=== PATIENT | male | born 2000 | race Caucasian/White ===

== ENCOUNTER 2023-12-28 05:35 | Emergency (ER) | payer OTHER, SELFPAY ==
[2023-12-28 05:36] VITALS: BP 162/98; BMI 23.5
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
[2023-12-28] MEDS: TORADOL 30 MG IV (06:40)
[2023-12-28 06:41] LABS: % Basophils 0.2 % (0-2); % Eosinophils 0.9 % (0-6); % Immature Granulocytes 0.4 % (0-0.5); % Monocytes 7.3 % (1.7-9.3); % Neutrophils 82.2 % (42.2-75.2); Absolute Eosinophils 0.1 10^3/uL (0-0.7); Absolute Immature Granulocytes 0.1 10^3/uL (0-0.05); Absolute Lymphocytes 1.2 10^3/uL (1.2-3.4); Absolute Neutrophils 11.3 10^3/uL (1.4-6.5); Hemoglobin 14.9 g/dL (13.0-18.0); Mean Corp Hgb Conc. 33.9 g/dL (33.0-37.0); Mean Corpuscular Hgb 28.5 pg (27.0-31.0); Mean Corpuscular Volume 84.1 fL (80.0-94.0); Mean Platelet Volume 10.8 fL (7.4-10.4); Nucleated Red Blood Cells % 0 % (-); Platelet Count 225 10^3/uL (130-400); Red Blood Cell Count 5.23 10^6/uL (4.70-6.10); Red Cell Dist. Width 11.7 % (11.5-14.5); White Blood Cell Count 13.8 10^3/uL (4.8-10.8)
[2023-12-28] MEDS: DECADRON 10 MG IV (06:41)
[2023-12-28] MEDS: ZOSYN 50 IV (06:43)
[2023-12-28 06:57] LABS: Blood Urea Nitrogen 18 mg/dl (9-20); Calcium 10.1 mg/dl (8.4-10.2); Carbon Dioxide 22 mmol/L (22-30); Chloride 105 mmol/L (98-107); Estimated Creatinine Clearance > 125 ml/min; Glucose 118 mg/dl (70-99); Potassium 3.9 mmol/L (3.5-5.1); Sodium 143 mmol/L (135-145); eGFR > 60.00
[2023-12-28 07:19] VITALS: BP 162/66
[2023-12-28 07:44] VITALS: BP 134/71
[2023-12-28 08:00] VITALS: BP 131/60
== END 2023-12-28 09:05 | disposition home or self-care (01) ==
LOC: EMR 05:35
PROVIDERS: EMERGENCY PHYSICIAN Student in an Organized Health Care Education/Training Program; FAMILY PHYSICIAN Nurse Practitioner Family
DX: J36 Peritonsillar abscess (principal)
CPT/HCPCS: 99284; 70491; 80048; 85025; Q9967

== ENCOUNTER 2024-10-18 06:27 | Observation (INO) | payer OTHER, SELFPAY ==
[2024-10-18] VITALS (13 sets, daily range): BP systolic 116–156; BP diastolic 40–98; BMI 24.0; BMI 23.2
[2024-10-18] MEDS: TORADOL 15 MG IV ×3 (01:03→20:20)
[2024-10-18 01:10] LABS: % Basophils 0.3 % (0-2); % Eosinophils 0.1 % (0-6); % Immature Granulocytes 0.3 % (0-0.5); % Lymphocytes 4.4 % (20.5-51.1); % Monocytes 4.3 % (1.7-9.3); % Neutrophils 90.6 % (42.2-75.2); Absolute Basophils 0.1 10^3/uL (0-0.2); Absolute Immature Granulocytes 0.1 10^3/uL (0-0.05); Absolute Lymphocytes 0.7 10^3/uL (1.2-3.4); Absolute Monocytes 0.7 10^3/uL (0.1-0.6); Absolute Neutrophils 15.1 10^3/uL (1.4-6.5); Hematocrit 46.6 % (39.0-52.0); Hemoglobin 16.5 g/dL (13.0-18.0); Mean Corp Hgb Conc. 35.4 g/dL (33.0-37.0); Mean Corpuscular Hgb 29.4 pg (27.0-31.0); Mean Corpuscular Volume 82.9 fL (80.0-94.0); Mean Platelet Volume 11.5 fL (7.4-10.4); Nucleated Red Blood Cells % 0 % (-); Platelet Count 219 10^3/uL (130-400); Red Blood Cell Count 5.62 10^6/uL (4.70-6.10); Red Cell Dist. Width 11.7 % (11.5-14.5); White Blood Cell Count 16.7 10^3/uL (4.8-10.8)
[2024-10-18 01:24] LABS: ALT (SGPT) 20 U/L (0-50); AST (SGOT) 25 U/L (17-59); Albumin 5.6 g/dl (3.5-5.0); Alkaline Phosphatase 89 U/L (38-126); Blood Urea Nitrogen 11 mg/dl (9-20); Calcium 10.5 mg/dl (8.4-10.2); Carbon Dioxide 20 mmol/L (22-30); Chloride 107 mmol/L (98-107); Estimated Creatinine Clearance > 125 ml/min; Glucose 145 mg/dl (70-99); Potassium 4.1 mmol/L (3.5-5.1); Sodium 144 mmol/L (135-145); Total Bilirubin 0.9 mg/dl (0.2-1.3); Total Protein 8.5 g/dl (6.3-8.2); eGFR > 60.00
--- NOTE | 2024-10-18 01:29 | ED.GENMED ---
History of Present Illness
General
Chief Complaint: Breathing Problem
Source: patient
Exam Limitations: none
Time Seen by Provider: 10/18/24 00:22
Nursing documentation reviewed up to this point in time: agreed with
History of Present Illness
History of Present Illness:
23-year-old male presents to the emergency room for evaluation of chest/back pain, neck pain, change in voice. Patient reports that he started with URI symptoms 2 days ago that resolved after about 24 hours�he reports that he had mild sore throat
and congestion. He says that yesterday he started with a cough and began to experience some shortness of breath, chest pain and back pain. He says that today started with some pain in the neck. He noticed 'I have crepitus in my neck' (patient
used to be an EMT). He says that his voice is more hoarse than usual. Came to the emergency room for evaluation. He has not had a fever. He denies any swelling in the legs. He denies any known chronic medical issues. He was seen in urgent
care, says that he had negative COVID test.
Past History
Past History
ED Past Medical History: None
ED Past Surgical History: Other (Hernia repair)
Social History
Tobacco: Non-smoker
Alcohol: None
Drug: None
Personal: Single
Living: with family
Review of Systems
Review of Systems
All Other Systems: ROS reviewed and negative except as documented in HPI and ROS
Constitutional: Denies fever or chills
EENT: Reports sore throat
Respiratory: Reports cough and trouble breathing
Cardiac: Reports chest pain
ABD/GI: Denies abdominal pain or vomiting
: Denies flank pain
Musculoskeletal: Reports neck pain and back pain
Neurological: Denies dizzy or headache
Phy Exam
Physical Exam
Physical Exam:
General: Awake, alert, oriented x3; no acute distress
Head: Normocephalic, atraumatic
Eyes: Conjunctiva normal, pupils equal round and reactive to light bilaterally
Throat: Airway intact, handling secretions; he does have some slight tonsillar enlargement and erythema but no exudate and no asymmetry, midline uvula
Neck: Trachea midline, supple without meningismus patient has crepitus of the entire anterior neck up towards the mandibular line
Lungs: Clear to auscultation bilaterally, no wheezing, rales, rhonchi
Heart: Regular rate and rhythm, no murmurs, gallops, or rubs; crepitus upper chest wall into the neck as above
Abd: Soft, non distended, nontender
Neuro: No gross deficits
Skin: no rash
Extremities: Warm and well-perfused
Scores
Heart Failure Risk
Heart Failure Risk Score: Not Applicable
Heart Score for Chest Pain Patients
STEMI patient?: Not applicable
Withdrawal Assessment of Alcohol
Withdrawal Assessment Completed?: Not applicable
Course
Orders/Labs/Results
Orders:
Orders
10/18/24 00:29
CR Chest - 2 Views Urgent
Comment:
Reason For Exam: sob, chest pain, crepitus
10/18/24 00:40
COVID-19 Antigen Urgent
Source: Nasal Swab
Complete Blood Count/With Diff Urgent
Comprehensive Metabolic Panel Urgent
Influenza A+B Rapid Molecular Urgent
SUMEET Source: Nasal Swab
Specimen Description:
RSV [Respiratory Syncytial Virus] Urgent
SUMEET Source: Nasal Swab
Specimen Description:
Date Specimen was Collected: 10/18/24
Time Specimen was Collected: 00:26
10/18/24 00:48
CT Chest With Iv Contrast Urgent
Comment:
Reason For Exam: neck pain, chest pain, subq air
CT Neck With Iv Contrast Urgent
Comment:
Reason For Exam: neck pain, subq air
10/18/24 00:49
Ketorolac [Toradol] 15 mg IV NOW STA
10/18/24 03:18
Oxycodone [Roxicodone] 5 mg PO NOW STA
Abnormal Lab Results
10/18/24
00:40
WBC 16.7 H 10^3/uL
(4.8-10.8)
MPV 11.5 H fL
(7.4-10.4)
Abs Immat Gran (auto) 0.1 H 10^3/uL
(0-0.05)
Absolute Neuts (auto) 15.1 H 10^3/uL
(1.4-6.5)
Absolute Lymphs (auto) 0.7 L 10^3/uL
(1.2-3.4)
Absolute Monos (auto) 0.7 H 10^3/uL
(0.1-0.6)
Neutrophils % 90.6 H %
(42.2-75.2)
Lymphocytes % 4.4 L %
(20.5-51.1)
Carbon Dioxide 20 L mmol/L
(22-30)
Glucose 145 H mg/dl
(70-99)
Calcium 10.5 H mg/dl
(8.4-10.2)
Total Protein 8.5 H g/dl
(6.3-8.2)
Albumin 5.6 H g/dl
(3.5-5.0)
10/18/24 00:40
10/18/24 00:40
Vital Signs
Initial and Last Documented VS:
Initial Vital Signs
Temp Pulse Resp BP Pulse Ox
36.4 C 98 22 155/98 98
10/18/24 00:14 10/18/24 00:14 10/18/24 00:14 10/18/24 00:14 10/18/24 00:14
Last Documented Vital Signs
Temp Pulse Resp BP Pulse Ox
36.4 C 89 10 156/62 96
10/18/24 00:14 10/18/24 02:58 10/18/24 02:45 10/18/24 02:16 10/18/24 02:45
MDM/Problems Addressed
Differential Diagnosis Includes:
Pneumothorax, esophageal tear, retropharyngeal/peritonsillar abscess, pneumomediastinum
MDM/Problems Addressed:
23-year-old male presents for evaluation of chest pain, back pain, shortness of breath in the setting of URI symptoms�sore throat, cough, congestion. Hypertensive otherwise normal vitals. Physical exam as above notable for crepitus of the chest
wall and neck. Bilateral breath sounds are present. Stat chest x-ray reviewed by me shows no pneumothorax but significant subcu air. Will send labs including a CBC and a CMP. Will check CT of the chest and neck. Toradol for pain. Reassess
after the above.
Labs significant for leukocytosis to 17. CT pending.
CT called back by [facility] radiology: Patient has extensive pneumomediastinum with gas tracking into the neck soft tissues bilateral axilla and chest wall. Small amount of gas tracking along the right bronchovascular bundle�overall suggestive of
barotrauma/alveolar rupture. Nothing to suggest esophageal injury. No pneumothorax. Given that he is tachycardic and has leukocytosis will cover with a dose of antibiotics. Will discuss with CT surgery.
Discussed case with cardiothoracic surgery�recommended admission for observation. They will consult on patient. Case discussed with hospitalist for admission.
*Radiology
Radiology exam reviewed: preliminary read by ED provider and radiology read reviewed
*Pulse Oximetry
Patient hypoxic: no
*Critical Care Note
Total Time (30-74mins, 75-104mins- exclusive of procedures): Not Applicable
Data Reviewed
Review of Other/Old Records Reveals: Labs and Records
Source: patient and records
Patient Management
Discussion with other providers: Hospitalist (Discussed with hospitalist) and Group Burner Machine (Discussed with cardiothoracic surgery)
Escalation/DeEscalation of care consider admission/obs:
Admission indicated
ED Attending Note
-
Portions of this chart may have been created with voice recognition software.� Occasional wrong word or��sound alike� substitutions may have occurred due to the inherent limitations of voice recognition software.
Discharge Plan
Departure
Patient Disposition: Admit
Date of Disposition: 10/18/24
Time of Disposition: 03:34
Admit to doctor: Agustin
Presentation/result/management discussed w/ accepting MD/DO: Hospitalist
Discharge Problem:
Pneumomediastinum
Prescriptions:
No Action
lisinopril 10 mg Tablet
10 mg PO DAILY
Referrals:
Alexy Overton CRNP [Family Provider] -
Interventions
Interventions:
*Risk Screen - Suicide Last Done: 10/18/24 00:14
*General Assessment Last Done: 10/18/24 00:32
*Neglect/Abuse Screening Last Done: 10/18/24 00:14
*ED- Fall Risk Assessment Last Done: 10/18/24 00:32
*ED COVID-19 Vaccine History Last Done: 10/18/24 00:32
ED- Cardiac Assessment Last Done: 10/18/24 01:23
ED- Pulmonary Assessment Last Done: 10/18/24 01:23
Discharge Date and Time
Print Language: GUAMANIAN
[2024-10-18 01:34] LABS: COVID-19 Antigen Negative (Negative)
[2024-10-18] MEDS: ROXICODONE 5 MG PO (03:33)
[2024-10-18] MEDS: ZOSYN 50 IV (04:07)
--- NOTE | 2024-10-18 06:22 | HPS.HSE ---
Family Physician
-
Family Physician: JOSE Palma
Chief Complaint
-
SOB
History of Present Illness
Patient is a 23y M with PMH significant for LVH who presents to ED complaining of SOB. Patient states that he developed a sore throat on Friday. He then developed chest and sinus congestion with cough on Friday. He notes that he was coughing
fairly vigorously. Friday evening into Friday AM he felt somewhat SOB. Last PM this was more severe and he was unable to get comfortable / get to sleep. Patient noted discomfort in his neck / throat area, his upper back and his lower chest. He
appreciated 'crackling' / crepitus when feeling around his throat / neck.
Patient presented to the ED for further evaluation and treatment.
Patient denies any cigarette smoking, crack cocaine use, N/V/D or other GI symptoms, recent injury / surgery or trauma.
Medical History
Past Medical History
Past Medical History: Reports Other
Additional Past Medical History:
Left Ventricular Hypertrophy
Past Surgical History: Reports None
Social History
Tobacco: Non-smoker
Alcohol: Occasional
Drug: Other (Occasional THC vape)
Family History
Family History: Other (MGF: Heart Disease Father: HTN)
Allergies / Home Medications
Allergies reflects when Allergies were last updated in [facility].
Home Medications with original date entered in [facility]
Allergy/Medication List:
Allergies
Allergy/AdvReac Type Severity Reaction Status Date / Time
No Known Allergies Allergy Verified 10/18/24 00:16
Home Medications
lisinopril 10 mg tablet 5 mg PO DAILY 10/18/24
Review of Systems
-
History Source: Patient
A 12 point ROS was completed and negative except as noted: Yes
Constitutional: Denies Fever or Chills
EENT: Reports Sore Throat
Respiratory: Reports Cough and Trouble Breathing; Denies Hemoptysis
Cardiac: Reports Chest Pain; Denies Diaphoresis, Palpitations or Syncope
Abdomen/GI: Denies Abdominal Pain, Nausea, Vomiting or Diarrhea
: Denies Dysuria, Frequency or Flank Pain
Musculoskeletal: Denies Joint Pain or Edema
Neurological: Denies Dizzy or Headache
Psych: Denies Depression or Anxiety
Physical Exam
Vital Signs
Vital Signs
Temp Pulse Resp BP Pulse Ox
97.6 F 97 10 132/59 96
10/18/24 00:14 10/18/24 05:00 10/18/24 05:00 10/18/24 05:00 10/18/24 05:00
Physical Exam
General: Other (23y M in no acute distress.)
HEENT: Other (Nasal voice. Crepitus along neck / upper chest / axillae.)
Respiratory: Clear; No Wheezes, Rales or Rhonchi
Cardiac: S1/S2 and Regular Rhythm; No Murmur
GI: Soft, Non Tender, Non Distended and Normal Bowel Sounds
Musculoskeletal: No Clubbing, No Cyanosis and No Edema
Neuro: AO x 3
Laboratory Results
-
10/18/24 00:40
10/18/24 00:40
Laboratory Results
Total Bilirubin 0.9 mg/dl (0.2-1.3) 10/18/24 00:40
AST 25 U/L (17-59) 10/18/24 00:40
ALT 20 U/L (0-50) 10/18/24 00:40
Alkaline Phosphatase 89 U/L (38-126) 10/18/24 00:40
Impression/Plan
-
A/P: Patient is a 23y M with PMH significant for LVH who presents to ED complaining of SOB.
Pneumomediastinum
- Observe overnight for further evaluation.
- Supportive care / pain control.
- Follow for worsening SOB, hypotension, chest pain, etc.
- CT Surgery consulted in ED.
- Adequate cough suppression. Avoid deep inspiration, strenuous activity, etc.
- Follow for clinical improvement.
Bronchitis
- Likely viral illness. Afebrile / non-toxic.
- Supportive care. Cough suppressant as noted above.
- Follow for any new / worsening symptoms.
- Observe off of abx for now.
LVH
- Check EKG.
- Patient recently started on lisinopril for LVH seen on EKG.
- Notes that he had low BP after initiation and dose decreased to 5mg.
- Would hold for now.
DVT Prophylaxis: SCDs
Code Status: Full
--- NOTE | 2024-10-18 08:32 | CONSULT.CT ---
Addendum entered and electronically signed by Tobi Bullock MD 10/18/24 17:06:
I saw and examined the patient.
The PA's note was reviewed and I agree with the note.
Comment:
Like secondary to barotrauma from coughing. Nothing to do from CT Surgery standpoint. We will sign off. Please call us back with questions or concerns.
Original Note:
Consultation
-
Date/Time Consultation Requested: 10/18/24
Date/Time Consultation Performed: 10/18/24 08:32
Requesting Provider: Dr. Randoplh Elizabeth MD.
Performing Provider: Emperatriz De La Cruz PA-C
Reason for Consultation: Pneumomediastinum
Patient History
Physicians
Family Physician: JOSE Palma
Outpatient Chute Puller: Dr. Terra Salgado MD.
Inpatient Chute Puller: None
History of Present Illness
Patient is extremely pleasant 23-year-old male with PMH significant for hypertension, started on lisinopril, seen by Dr. Salgado roughly 3 weeks ago, nightly THC via vape.
Patient was doing well up until Friday night when he began to experience a sore throat. This resolved and shortly after on Friday he started with congestion. By Friday night into Friday he was coughing and experiencing shortness of breath.
Patient sought medical attention at an urgent care on Friday where they diagnosed him with bronchitis and gave him steroids and albuterol inhaler. No imaging was done and he was discharged home. His condition continued to worsen and he then
presented to [facility]'s emergency department on Friday around 1:30 AM.
Patient underwent routine labs and chest x-ray which revealed leukocytosis with a white count of 16.7. Chest x-ray revealed pneumomediastinum extending into the neck with no visible pneumothorax. Subsequent CT of the chest and neck were performed
and confirmed the above findings. CT surgery physician on-call Dr. Casiano was notified and recommended admitting the patient for observation. CT surgery was consulted.
Past Medical History
Past Medical History: HTN and Other (Nightly THC via vape)
Past Surgical History
Past Surgical History: None
Dental History
Noncontributory
Family History
Mother: Still Living (54, no comorbidities reported)
Father: Still Living (57, with hypertension and hyperlipidemia)
Social History
Alcohol: None
Drug: Marijuana (Before bed, via vape pen)
Tobacco: Non-Smoker
Personal: Single
Living: Alone
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
Allergies
Allergy/AdvReac Type Severity Reaction Status Date / Time
No Known Allergies Allergy Verified 10/18/24 00:16
Home Medications
�Medication �Instructions �Recorded �Confirmed �Type
albuterol sulfate 90 mcg/actuation 2 puff inhalation R Q6HPRN PRN sob 10/18/24 10/18/24 History
aerosol inhaler
brompheniramine-phenylpropanol ER 1 tab PO DAILYPRN PRN congestion 10/18/24 10/18/24 History
12 mg-75 mg tablet,ext.release 12
hr
guaifenesin 100 mg/5 mL oral liquid 200 mg PO BIDPRN PRN cough 10/18/24 10/18/24 History
ibuprofen 200 mg tablet (Advil) 400 mg PO Q6HPRN PRN mild pain 10/18/24 10/18/24 History
lisinopril 5 mg tablet 5 mg PO DAILY 10/18/24 10/18/24 History
therapeutic multivitamin 1 tab PO DAILY 10/18/24 10/18/24 History
Review of Systems
-
History Source: Patient
General: Denies Fever, Weight Gain, Weight Loss, Fatigue or Chills
HEENT: Reports Other (Crepitus in neck and shoulders as well, voice change); Denies Visual Changes, Dysphagia or Hoarseness
Respiratory: Reports SOB, HANSEN and Cough; Denies Asthma or PND
Cardiac: Reports Chest Pain; Denies CAD, Palpitations, Nausea, Vomiting, Diaphoresis or Edema
Abdomen/GI: Denies Abdominal Pain, Reflux, Indigestion, Nausea, Vomiting, Diarrhea or BRBPR
: Denies Dysuria, Frequency, Incontinence, Urgency or Hematuria
Musculoskeletal: Denies Myalgias, Arthralgias, Joint Pain or Edema
Skin: Denies Itching or Rash
Neurological: Denies CVA, TIA, Headaches, Weakness, Numbness or Seizures
Vascular: Denies Claudication or PVD
Physical Exam
Vital Signs
Temp 97.6 F 10/18/24 00:14
Temp route: Oral 10/18/24 00:14
Pulse 75 10/18/24 08:00
Resp Rate 18 10/18/24 08:00
Blood pressure 145/68 10/18/24 08:00
Blood pressure extremity used: Right upper arm 10/18/24 08:00
Position: Lying 10/18/24 08:00
MAP (cuff-Raphael Monitor) 83 10/18/24 08:00
MAP 83 10/18/24 08:00
SaO2 95 10/18/24 08:00
Oxygen Mode of Delivery Room air 10/18/24 08:00
Acceptable pain level during hospitalization? 0 10/18/24 00:14
Can the patient verbally communicate their pain? Yes 10/18/24 04:33
Pain scale ratin 10/18/24 04:33
Actual Weight 167 lb 8.821 oz 10/18/24 00:32
Body Mass Index (BMI) 24.0 10/18/24 00:32
Labs
10/18/24 00:40
10/18/24 00:40
Diagnostic Studies
CXR 10/18/2024:
Pneumomediastinum, which extends into the neck and chest wall. See above. No pneumothorax.
CT chest 10/18/2024:
Pneumomediastinum and subcutaneous emphysema, most suggestive of barotrauma. No secondary findings to indicate an esophageal perforation, such as esophageal wall thickening. No pleural effusion or pneumothorax.
CT neck 10/18/2024:
Report pending
Exam
General: Well Developed, Well Nourished and No Apparent Distress
HEENT: Normocephalic, Anicteric, Moist Mucous Membranes, Atraumatic, PERRLA and Other (Voice change)
Neck: Trachea Midline and Other (Crepitus extending into the neck, and shoulders)
Respiratory: Wheezes (Mild); Negative Crackles, Rhonchi or Accessory Muscle Use
Cardiac: S1/S2, Regular Rhythm and Other (Crepitus in the upper chest region); Negative Murmur, Rub or Gallop
GI: Soft, Non Tender, Non Distended and Normal Bowel Sounds
Rectal: Deferred by Provider
Skin: Warm and Dry; Negative Rash
Neuro: AO x 3, No Motor Deficits and CN X-XII Intact
Extremities: Negative Upper Level Edema, Lower Level Edema, Upper Level Cyanosis, Lower Level Cyanosis, Upper Level Clubbing or Lower Level Clubbing
Psych: Calm
Assessment / Plan
-
Assessment:
23-year-old male with PMA significant for:
HTN
Nightly THC use via vape
Now with newly diagnosed:
Pneumomediastinum with associated crepitus/subcutaneous emphysema and voice change.
Plan:
Admission to hospitalist/medicine service for observation.
Trend white blood cell count
Recommend checking esophagram with Gastrografin/barium to rule out esophageal perforation
Counseled patient on vaping cessation
If esophagram is negative for leak and white blood cell counts improve or normalize, okay for discharge to home.
--- NOTE | 2024-10-18 12:26 | W.PN.UPDATE ---
Update Note
Progress Note Update
Seen and examined independent of overnight physician. Nonbillable note. Patient states mild shortness of breath. No coughing currently. Denies any vomiting. States of hoarseness of voice. Underwent CAT scan of the chest and neck on admission
which showed barotrauma/alveolar rupture, pneumomediastinum and subcutaneous emphysema. No secondary finding to indicate esophageal perforation such as esophageal wall thickening. No pleural effusion or pneumothorax.
General: Other (23y M in no acute distress.), hoarseness of voice noted
HEENT: Other (Nasal voice. Crepitus along neck / upper chest / axillae.)
Respiratory: Clear; No Wheezes, Rales or Rhonchi
Cardiac: S1/S2 and Regular Rhythm; No Murmur
GI: Soft, Non Tender, Non Distended and Normal Bowel Sounds
Musculoskeletal: No Clubbing, No Cyanosis and No Edema
Neuro: AO x 3
A/P: Patient is a 23y M with PMH significant for LVH who presents to ED complaining of SOB.
Pneumomediastinum
- Supportive care / pain control.
- Follow for worsening SOB, hypotension, chest pain, etc.
- Barium esophagogram negative for esophageal leak. Restart diet.
- Adequate cough suppression. Avoid deep inspiration, strenuous activity, etc.
- Follow for clinical improvement.
- Trend WBC. Pulmonary input.
Bronchitis
- Likely viral illness. Afebrile / non-toxic.
- Supportive care. Cough suppressant as noted above.
- Follow for any new / worsening symptoms.
- Observe off of abx for now.
LVH
- Patient recently started on lisinopril for LVH seen on EKG.
- Notes that he had low BP after initiation and dose decreased to 5mg.
- Would hold for now.
Mild hypercalcemia likely due to dehydration
- Start gentle IV fluids
DVT Prophylaxis: SCDs
Code Status: Full
Discussed with family member at bedside
--- NOTE | 2024-10-18 13:04 | CON.PUL ---
Consultation
Consultation Request
Date/Time Consultation Requested: 10/18/24
Date/Time Consultation Performed: 10/18/24
Performing Provider: Lita
Reason for Consultation: Pneumomediastinum
Medical History
-
History of Present Illness:
23 year old M with no significant past history, presenting with chest pain/SOB. He had noted sore throat on Friday, developed chest congestion with cough on Friday. He does note significant coughing prior to arrival, as well as development of
wheeze. Presented to ER by early Friday morning, CT obtained showing extensive pneumomediastinum with recommendation to be admitted for observation by CT surgery.
Denies any prior known history of lung disease including asthma, denies family history.
Lifelong nonsmoker, cigarettes use. Does admit to vaping THC. He denies any nicotine containing substances. Denies any recent trauma or illness.
Has never seen pulmonary OP.
Past Medical History
Past Medical History: Other (see list below)
Social History
Tobacco: Vaping (THC)
Alcohol: None
Drug: None
Family History
Family History: Reviewed & Not Pertinent
Allergies / Home Medications
Allergies
Allergy/AdvReac Type Severity Reaction Status Date / Time
No Known Allergies Allergy Verified 10/18/24 00:16
Home Medications
�Medication �Instructions �Recorded �Confirmed �Last Taken �Type
albuterol sulfate 90 mcg/actuation 2 puff inhalation R Q6HPRN PRN sob 10/18/24 10/18/24 Unknown History
aerosol inhaler
brompheniramine-phenylpropanol ER 1 tab PO DAILYPRN PRN congestion 10/18/24 10/18/24 Unknown History
12 mg-75 mg tablet,ext.release 12
hr
guaifenesin 100 mg/5 mL oral liquid 200 mg PO BIDPRN PRN cough 10/18/24 10/18/24 Unknown History
ibuprofen 200 mg tablet (Advil) 400 mg PO Q6HPRN PRN mild pain 10/18/24 10/18/24 Unknown History
lisinopril 5 mg tablet 5 mg PO DAILY 10/18/24 10/18/24 Unknown History
therapeutic multivitamin 1 tab PO DAILY 10/18/24 10/18/24 Unknown History
Review of Systems
-
History Source: Patient
All other systems: Negative unless noted
Vitals / Labs / Diagnostic Testing
Vital Signs
Temp Pulse Resp BP Pulse Ox
98.1 F 92 16 116/47 98
10/18/24 09:10 10/18/24 09:10 10/18/24 09:10 10/18/24 09:10 10/18/24 09:10
Lab Data
10/18/24 00:40
10/18/24 00:40
Microbiology
10/18/24 00:40 Nasal Swab Respiratory Syncytial Virus Ag - Final
Negative for Respiratory Syncytial Virus.
A false negative result may be obtained with a specimen
collected early in the acute phase. If symptoms persist, a
new specimen should be tested.
10/18/24 00:40 Nasal Swab Influenza Types A & B (JACQUELINE) - Final
Negative for Influenza A & B, NAAT
Negative results must be combined with clinical observations
and patient history.
Nucleic Acid Amplification test (NAAT)performed on the
[employer] platform.
Diagnostic Testing:
Physical Exam
-
HEENT: Normocephalic, Anicteric, Moist Mucous Membranes and Other (nasal sounding voice)
Cardiovascular: S1/S2 and Regular Rhythm
Respiratory: Wheeze, Non-Labored Respirations and Other (Crepitus noted throughout neck, chest, axilla)
GI: Soft, Non Distended and Non Tender
Neurology: Awake, Alert, Oriented and No Motor Deficits
Skin: Warm, Dry and Good Color
General: Comfortable and Other (NAD)
Assessment
-
23 year old M with no significant past history, presenting with chest pain/SOB. He had noted sore throat on Friday, developed chest congestion with cough on Friday. He does note significant coughing prior to arrival, as well as development of
wheeze. Presented to ER by early Friday morning, CT obtained showing extensive pneumomediastinum with recommendation to be admitted for observation by CT surgery. We are consulted for evaluation.
Pneumomediastinum with associated crepitus/subcutaneous emphysema
Voice changes
Conditions present ART INSTRUCTOR
HTN
Nightly THC use via vape
Plan
No oxygen was needed on admission, currently saturating >90% on RA
Denies any prior known history of lung disease including asthma, denies family history.
Lifelong nonsmoker, cigarettes use. Does admit to vaping THC. He denies any nicotine containing substances. Denies any recent trauma or illness.
Has never seen pulmonary OP.
Suspect patient has coughing induced tearing/pneumomed, we discussed pathophysiology and treatment which generally is supportive
CXR/CT obtained and reviewed
He does feel some narrowness in his airway, aware of things when swallowing as well
Consider ENT eval if worsening
Given wheezing, will add albuterol scheduled
Smoking history noted--we discussed cessation
Will need outpatient pulmonary evaluation in our office for PFTs and 6MWT
Reviewed with patient
Observation x 24 hours to evaluate progress and ensure not progressing into upper airways
Discussed with patient and family at bedside
We will follow
Diagnostic Data
Chest X-Ray:
10/18/24- Pneumomediastinum, which extends into the neck and chest wall.
10/21/20- No active disease.
CT Scan: CHEST 10/18/24- Pneumomediastinum and subcutaneous emphysema, most suggestive of barotrauma. No secondary findings to indicate an esophageal perforation, such as esophageal wall thickening. No pleural effusion or pneumothorax.
Neck 12/28/23- Enlargement of the left tonsillar and peritonsillar soft tissues, compatible with tonsillitis.
Subtle ill-defined decreased density within the left tonsillar region, which likely represents left-sided phlegmon, and could represent an early developing abscess.
Echo:
PFT's:
Reports and relevant images were personally reviewed.
Total time spent on this consultation __75__ minutes which includes review of history, physical exam, medications, laboratory data, personal review of imaging, extensive review of outpatient records, discussion with care team and respiratory therapy.
[2024-10-18] MEDS: NSS 1000 IV (13:23)
--- NOTE | 2024-10-18 13:25 | PTCARENOTE ---
Patient c/o neck, chest and back pain. Toradol given. Phenergan with codeine given for cough.
[2024-10-18] MEDS: PHENERGAN WITH CODEINE SYRUP 5 ML PO ×2 (13:27→23:08)
[2024-10-18] MEDS: VENTOLIN NEBULES 1.25 MG INH (20:16)
[2024-10-19 03:30] VITALS: BP 131/59
[2024-10-19 06:59] LABS: Hematocrit 45.2 % (39.0-52.0); Hemoglobin 15.3 g/dL (13.0-18.0); Mean Corp Hgb Conc. 33.8 g/dL (33.0-37.0); Mean Corpuscular Hgb 28.8 pg (27.0-31.0); Mean Platelet Volume 11.5 fL (7.4-10.4); Platelet Count 192 10^3/uL (130-400); Red Blood Cell Count 5.32 10^6/uL (4.70-6.10); White Blood Cell Count 7.9 10^3/uL (4.8-10.8)
[2024-10-19 07:19] LABS: Blood Urea Nitrogen 17 mg/dl (9-20); Calcium 9.4 mg/dl (8.4-10.2); Carbon Dioxide 23 mmol/L (22-30); Chloride 107 mmol/L (98-107); Estimated Creatinine Clearance > 125 ml/min; Glucose 96 mg/dl (70-99); Potassium 4.6 mmol/L (3.5-5.1); Sodium 142 mmol/L (135-145); eGFR > 60.00
[2024-10-19] MEDS: VENTOLIN NEBULES 1.25 MG INH ×3 (07:20→19:58)
[2024-10-19 07:45] VITALS: BP 142/82
--- NOTE | 2024-10-19 09:18 | W.PN.PUL3 ---
Today's Communication / Plan
-
Better today, less wheezing but has mild basilar, continue TID nebs
ENT eval, persistent voice changes/nasal impingement/swallowing issue, he does have more mobility in his neck
We reviewed OP FU, will arrange nebulizer to home
Discharge planning per team later today
Assessment
-
23 year old M with no significant past history, presenting with chest pain/SOB. He had noted sore throat on Friday, developed chest congestion with cough on Friday. He does note significant coughing prior to arrival, as well as development of
wheeze. Presented to ER by early Friday morning, CT obtained showing extensive pneumomediastinum with recommendation to be admitted for observation by CT surgery. We are consulted for evaluation.
Pneumomediastinum with associated crepitus/subcutaneous emphysema
Voice changes
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
HTN
Nightly THC use via vape
Plan
No oxygen was needed on admission, currently saturating >90% on RA
Denies any prior known history of lung disease including asthma, denies family history.
Lifelong nonsmoker, cigarettes use. Does admit to vaping THC. He denies any nicotine containing substances. Denies any recent trauma or illness.
Has never seen pulmonary OP.
Suspect patient has coughing induced tearing/pneumomed, we discussed pathophysiology and treatment which generally is supportive
CXR/CT obtained and reviewed
He does feel some narrowness in his airway, aware of things when swallowing as well
ENT eval
Given wheezing, continue TID albuterol
This can be continued at discharge
Smoking history noted--we discussed cessation
Will need outpatient pulmonary evaluation in our office for PFTs and 6MWT
Reviewed with patient
Discussed with patient and family at bedside
Discharge planning following ENT eval
Diagnostic Data
Chest X-Ray:
10/18/24- Pneumomediastinum, which extends into the neck and chest wall.
10/21/20- No active disease.
CT Scan: CHEST 10/18/24- Pneumomediastinum and subcutaneous emphysema, most suggestive of barotrauma. No secondary findings to indicate an esophageal perforation, such as esophageal wall thickening. No pleural effusion or pneumothorax.
Neck 12/28/23- Enlargement of the left tonsillar and peritonsillar soft tissues, compatible with tonsillitis.
Subtle ill-defined decreased density within the left tonsillar region, which likely represents left-sided phlegmon, and could represent an early developing abscess.
Echo:
PFT's:
Reports and relevant images were personally reviewed.
Total time spent on this consultation __51__ minutes which includes review of history, physical exam, medications, laboratory data, personal review of imaging, extensive review of outpatient records, discussion with care team and respiratory therapy.
Subjective Data
-
Date of Service:
Date of Service: October 19, 2024
Chief Complaint: Pulmonary Follow Up
Subjective:
Doing better today, not on O2
Wants to go home
Objective Data
Data Reviewed
Vital Signs / I&O / Oxygen:
Vital Signs
Temp Pulse Resp BP Pulse Ox
98.2 F 99 16 142/82 97
10/19/24 07:45 10/19/24 07:45 10/19/24 07:45 10/19/24 07:45 10/19/24 07:45
Intake and Output
10/18/24 10/19/24 10/20/24
06:59 06:59 06:59
Intake Total 480 / 480
Balance 480 / 480
SaO2 97
Physical Exam
General: Comfortable and Other (NAD)
HEENT: Normocephalic, Anicteric, Moist Mucous Membranes and Other (nasal voice/no stridor)
Cardiovascular: S1-S2 and Regular Rhythm
Respiratory: Wheeze (improving, bilateral/mild), Non-Labored Respirations, Crepitus (bilateral extending from neck/chest/axilla) and Other
GI: Soft, Non Distended and Non Tender
Neurology: Awake, Alert, Oriented and No Motor Deficits
Skin: Warm, Dry and Good Color
Labs/Micro/Reports
Lab Data
10/19/24 06:05
10/19/24 06:04
Microbiology
10/18/24 00:40 Nasal Swab Respiratory Syncytial Virus Ag - Final
Negative for Respiratory Syncytial Virus.
A false negative result may be obtained with a specimen
collected early in the acute phase. If symptoms persist, a
new specimen should be tested.
10/18/24 00:40 Nasal Swab Influenza Types A & B (JACQUELINE) - Final
Negative for Influenza A & B, NAAT
Negative results must be combined with clinical observations
and patient history.
Nucleic Acid Amplification test (NAAT)performed on the
[employer] platform.
[2024-10-19 10:20] VITALS: BP 147/96
--- NOTE | 2024-10-19 10:35 | CM ---
Addendum entered by Jennifer López 10/19/24 14:19:
CM consult completed; Discussed Nebulizer order with patient and mother at bedside; CM explained that she called [facility], and was told they have DME in stock; cost is $49.99
Notified Attending and requested that he leave a script on the chart
Mother reported she can poultry picking machine tender nebulizer at [facility] @ [address] [place] [address] # [phone]
Original Note:
Met with patient's mother at the bedside; patient was in the bathroom; initial assessment completed
Pharmacy verified: [facility] @ [address] [facility]
Observation/Outpatient form explained to mother; form signed @ 1029
Patient lives alone in an apartment; but per mother will discharge to parent's multilevel home; 1 step to enter; 17-18 steps to 2nd floor bedroom and bathroom; railing on stairs; home has powder room 1st floor
PLOF: mother reported that patient is independent with ambulation and ADLs; no DME
No history of SNF or home health utilization
Mother will transport home
[2024-10-19] MEDS: MUCINEX 600 MG PO ×2 (11:12→20:35)
--- NOTE | 2024-10-19 12:00 | W.PN.HOSP.TC ---
Today's Communication/Plan
-
ENT input
cont w/albuterol
Assessment / Plan
Assessment / Plan
General: Other (23y M in no acute distress.), hoarseness of voice NOT noted
HEENT: Crepitus along neck / upper chest / axillae.)
Respiratory: Clear; No Wheezes, Rales or Rhonchi
Cardiac: S1/S2 and Regular Rhythm; No Murmur
GI: Soft, Non Tender, Non Distended and Normal Bowel Sounds
Musculoskeletal: No Clubbing, No Cyanosis and No Edema
Neuro: AO x 3
A/P: Patient is a 23y M with PMH significant for LVH who presents to ED complaining of SOB.
Pneumomediastinum
- Supportive care / pain control.
- Follow for worsening SOB, hypotension, chest pain, etc.
- Barium esophagogram negative for esophageal leak. Restart diet.
- Adequate cough suppression. Avoid deep inspiration, strenuous activity, etc.
- Follow for clinical improvement.
- anti-cough meds prn. albuterol started.
- Trend WBC-resolved. Pulmonary input.
- ENT input as well.
Bronchitis
- Likely viral illness. Afebrile / non-toxic.
- Supportive care. Cough suppressant as noted above.
- Follow for any new / worsening symptoms.
- Observe off of abx and hold off on steroids.
LVH
- Patient recently started on lisinopril for LVH seen on EKG.
- Notes that he had low BP after initiation and dose decreased to 5mg.
- Would hold for now.
Mild hypercalcemia likely due to dehydration
- resolved.
DVT Prophylaxis: SCDs
Code Status: Full
Discussed with family member at bedside
d/w with pulm
Anticipated Discharge: Within 24 hours
Subjective/Interval History
-
Date of Service: October 19, 2024
able to eat without difficulty
states of neck crepitus
had some wheezing earlier today
Objective Data
-
Labs:
Laboratory Results
10/19/24 10/19/24
06:04 06:05
WBC 7.9
Hgb 15.3
Hct 45.2
Plt Count 192
Sodium 142
Potassium 4.6
Chloride 107
Carbon Dioxide 23
BUN 17
Creatinine 0.9
Glucose 96
Calcium 9.4
Vital Signs:
Vital Signs
Temp Pulse Resp BP Pulse Ox
98.1 F 99 16 147/96 97
10/19/24 10:20 10/19/24 10:20 10/19/24 10:20 10/19/24 10:20 10/19/24 10:20
I&O
10/18/24 10/19/24 10/20/24
06:59 06:59 06:59
Intake Total 480 / 480
Balance 480 / 480
[2024-10-19] MEDS: PHENERGAN WITH CODEINE SYRUP 5 ML PO (12:15)
[2024-10-19 15:55] VITALS: BP 138/90
--- NOTE | 2024-10-19 18:05 | CON.MD ---
Consultation - Medical
-
Chief complaint: Pneumomediastinum, subcutaneous crepitus
History of present illness: This 23-year-old gentleman had an upper respiratory tract infection or allergies. He was feeling congested. He was doing some coughing and developed some changes in his voice as well as some subcutaneous crepitus. He
is feeling pretty good. He has not noted any significant progression since he has been here in the hospital. He is not having any respiratory distress. He is feeling pretty good otherwise. He has been able to eat and drink without significant
problem.
Past medical history:
Medical problems: History of allergies, history of pneumomediastinum,
Allergies: No known drug allergies
Hospitalizations: Currently hospitalized for a pneumomediastinum and subcutaneous emphysema
Past surgical history: Negative
Family history: Noncontributory for this problem
Review of systems: Stiff neck improving, positive for mild voice change, negative for chest pain, negative for respiratory distress
Physical examination:
Head: Atraumatic and normocephalic
Eyes: Extraocular movements are intact
Ears: Normal to exam
Nose: Very mild septal deviation with some pale swelling consistent with allergies but no evidence of infection.
Mouth: Clear without significant mucosal abnormality
Neck: The patient has subcutaneous emphysema on both sides of the neck
Cranial nerves: 2 through 12 are intact
Thyroid gland: Normal to exam
Salivary glands: Normal to exam
Procedure: Flexible nasal endoscopy
The patient underwent flexible nasal endoscopy with valuation of both sides of the nose. The patient has turbinate swelling consistent with allergies but no polyps and no evidence of infection. Nasopharynx shows some redness of the posterior
nasopharyngeal wall but no evidence of tumor or mass. Hypopharynx and larynx are normal. Vocal cord motion is normal. There is no airway obstruction. No masses or tumors are noted. There is no pooling of secretions.
Impression/plan: This 23-year-old gentleman has pneumomediastinum and subcutaneous emphysema which seems to be improving at this point. He has no significant airway obstruction. From my standpoint he could be discharged home and follow-up in the
office as needed. I anticipate that his subcutaneous emphysema will take 3 to 4 days to resolve. He can eat and drink normally. He should try to avoid coughing vigorously. He can follow-up in the office if he has continued problems.
[2024-10-19 19:55] VITALS: BP 137/69
[2024-10-19 23:39] VITALS: BP 142/76
[2024-10-20] MEDS: TORADOL 15 MG IV (03:53)
[2024-10-20 04:00] VITALS: BP 127/83
[2024-10-20] MEDS: VENTOLIN NEBULES 1.25 MG INH (07:29)
[2024-10-20] MEDS: MUCINEX 600 MG PO (07:37)
[2024-10-20 09:00] VITALS: BP 130/80
--- NOTE | 2024-10-20 10:57 | W.PN.HOSP.TC ---
Today's Communication/Plan
-
dc home
Assessment / Plan
Assessment / Plan
General: Other (23y M in no acute distress.), hoarseness of voice NOT noted
HEENT: Crepitus along neck / upper chest / axillae.)
Respiratory: Clear; No Wheezes, Rales or Rhonchi
Cardiac: S1/S2 and Regular Rhythm; No Murmur
GI: Soft, Non Tender, Non Distended and Normal Bowel Sounds
Musculoskeletal: No Clubbing, No Cyanosis and No Edema
Neuro: AO x 3
A/P: Patient is a 23y M with PMH significant for LVH who presents to ED complaining of SOB.
Pneumomediastinum
- Supportive care / pain control.
- Follow for worsening SOB, hypotension, chest pain, etc.
- Barium esophagogram negative for esophageal leak. Restart diet.
- Adequate cough suppression. Avoid deep inspiration, strenuous activity, etc.
- Follow for clinical improvement.
- anti-cough meds prn. albuterol started.
- Trend WBC-resolved. Pulmonary input.
- ENT i correspondence noted. Can follow-up as outpatient if needed. Stated patient to avoid air travel and scuba diving.
Bronchitis
- Likely viral illness. Afebrile / non-toxic.
- Supportive care. Cough suppressant as noted above.
- Follow for any new / worsening symptoms.
- Observe off of abx and hold off on steroids.
LVH
- Patient recently started on lisinopril for LVH seen on EKG.
- Notes that he had low BP after initiation and dose decreased to 5mg.
- restart. f/u as outpatient
Mild hypercalcemia likely due to dehydration
- resolved.
DVT Prophylaxis: SCDs
Code Status: Full
Discussed with mother at bedside on 10/19.
More than 30 minutes spent in discharge including
Final examination of the patient
Summarizing hospital stay
Instructions for continuing care to all relevant caregivers
Preparation of discharge records, prescriptions, and referral forms
Total time spent (in minutes): 42
Anticipated Discharge: Today
Subjective/Interval History
-
Date of Service: October 20, 2024
Denies any hoarseness
Tolerating diet without any difficulty
Denies any chest pain
Patient ambulating in hallway without any shortness of breath
Objective Data
-
Vital Signs:
Vital Signs
Temp Pulse Resp BP Pulse Ox
98.8 F 79 16 127/83 100
10/20/24 04:00 10/20/24 07:32 10/20/24 07:32 10/20/24 04:00 10/20/24 07:45
I&O
10/19/24 10/20/24 10/21/24
06:59 06:59 06:59
Intake Total 2460 / 2460
Balance 2460 / 2460
--- NOTE | 2024-10-20 11:16 | CM ---
Patient stable for d/c today. Rx for nebulizer provided.
Patient's mother will transport home
No CM needs identified at this time
Plan: Home; no needs
--- NOTE | 2024-10-20 13:17 | W.DCSUMMARY ---
Discharge Summary
Discharge Data
Date of Admission: 10/18/24
Date of Discharge: 10/20/24
-
Pending Results: No
Hospital Course
23-year-old male who is presented with complaints of shortness of breath. Patient stated he noticed crepitus on his neck. Patient underwent CT of the chest and neck. Pneumomediastinum and subcutaneous emphysema, most suggestive of barotrauma. No
secondary findings to indicate an esophageal perforation, such as esophageal wall thickening. No pleural effusion or pneumothorax. CT of the neck with extensive soft tissue gas. Finding of likely reflecting barotrauma/alveolar rupture. Patient
was seen by CT surgery as they were consulted on admission per CT surgery no surgery required.. Patient underwent esophagram which was negative for esophageal leak/rupture. Patient was tolerating diet. Pulmonary was consulted. Patient was
started on albuterol nebulizer which seems to have significantly helped. Patient states of some crepitus which is increasing and ENT was consulted. Patient underwent evaluation by ENT and did not see any airway obstruction. Recommended outpatient
follow-up as needed basis. Patient was ambulating the hallway without any difficulty. Patient was tolerating diet without any shortness of breath.
Discharge Plan
-
Patient Disposition: Home (Routine Discharge)
Discharge Diagnosis/Procedures: Pneumomediastinum
Bronchitis
Leukocytosis
Dehydration
Mild hypercalcemia
Condition: Fair
Diet: Regular
Activity: As tolerated
Driving Restrictions: As prior to admission
Activity Restrictions/Additional Instructions:
try to avoid coughing vigorously.
Referrals:
Alexy Overton CRNP [Family Provider] - in less than 1 week
Yoanna London DO [Active] - in two to four weeks (PFTs)
Mitesh Gimenez MD [Active] - in one to two weeks
()
Prescriptions:
New
albuterol sulfate 1.25 mg/3 mL Solution For Nebulization
1.25 mg inhalation TID 10 Days Qty: 90 0RF
benzonatate 200 mg capsule
200 mg PO TID PRN (Reason: severe cough ) Qty: 30 0RF
Continued
therapeutic multivitamin Tablet
1 tab PO DAILY
guaifenesin 100 mg/5 mL Liquid
200 mg PO BIDPRN PRN (Reason: cough)
brompheniramine-PPA 12-75 mg Tablet Extended Release 12 Hr
1 tab PO DAILYPRN PRN (Reason: congestion)
ibuprofen [Advil] 200 mg Tablet
400 mg PO Q6HPRN PRN (Reason: mild pain)
lisinopril 5 mg Tablet
5 mg PO DAILY
albuterol sulfate 90 mcg/actuation Hfa Aerosol Inhaler
2 puff INHALATION R Q6HPRN PRN (Reason: sob)
Discharge Orders:
Discharge Patient (As Directed); Ordered 10/20/24
Ordered By: Rene Crespo
Discharge Date and Time
Discharge Date/Time: 10/20/24 11:20
Print Language: GAMBIAN
--- NOTE | 2024-10-20 13:20 | PTCARENOTE ---
Rn flow ink blender- Call from patient who states that his pharmacy does not carry albuterol nebulizer. Josh texted DR Crespo to resend the dc.
== END 2024-10-20 11:20 | disposition home or self-care (01) ==
LOC: 2 SOUTH 06:27
PROVIDERS: ADMITTING PHYSICIAN Hospitalist; ATTENDING PHYSICIAN Hospitalist; CONSULT PHYSICIAN Internal Medicine; CONSULT PHYSICIAN Otolaryngology Facial Plastic Surgery; EMERGENCY PHYSICIAN Emergency Medicine; FAMILY PHYSICIAN Nurse Practitioner Family; OTHER PHYSICIAN Thoracic Surgery (Cardiothoracic Vascular Surgery)
DX: T79.7XXA Traumatic subcutaneous emphysema, initial encounter (principal); R49.9 Unspecified voice and resonance disorder; Z11.52 Encounter for screening for COVID-19; J40 Bronchitis, not specified as acute or chronic; Z79.899 Other long term (current) drug therapy; F17.290 Nicotine dependence, other tobacco product, uncomplicated; E83.52 Hypercalcemia; I10 Essential (primary) hypertension; R05.9 Cough, unspecified
CPT/HCPCS: 70491; 71046; 71260; 74220; 80048; 80053; 85025; 85027; 87502; 87807; 87811; 93005; 94640; 96365; 96374; 99285; Q9967